=== PATIENT | male | born 1970 | race Caucasian/White ===

== ENCOUNTER → 2023-08-06 09:50 | Outpatient (REF) | payer OTHER, SELFPAY | LOC: RAD 09:50 | PROVIDERS: ATTENDING PHYSICIAN Internal Medicine Cardiovascular Disease; FAMILY PHYSICIAN Family Medicine | DX: I20.9 Angina pectoris, unspecified (principal); I25.10 Atherosclerotic heart disease of native coronary artery without angina pectoris; I10 Essential (primary) hypertension; E78.49 Other hyperlipidemia | CPT/HCPCS: 75574; Q9967 ==

== ENCOUNTER → 2023-09-28 14:08 | Outpatient (REF) | payer OTHER, SELFPAY | LOC: HWRAD 14:08 | PROVIDERS: ATTENDING PHYSICIAN Nurse Practitioner Acute Care; FAMILY PHYSICIAN Family Medicine | DX: I25.10 Atherosclerotic heart disease of native coronary artery without angina pectoris (principal) | CPT/HCPCS: 93880 ==

== ENCOUNTER 2024-03-31 10:13 | Emergency (ER) | payer OTHER, SELFPAY ==
[2024-03-31 10:27] VITALS: BP 148/91
--- NOTE | 2024-03-31 11:11 | ED.MUSCINJ ---
HPI-Injury
General
Chief Complaint: Musculo-Skeletal Complaint
Source: patient
Exam Limitations: none
Time Seen by Provider: 03/31/24 10:30
History of Present Illness-Injury
Initial Injury comments:
53-year-old male on aspirin and Plavix for history of coronary artery disease presents with crushing type injury to left thumb he sustained today at work. Last tetanus was less than 5 years ago. He notes minimal pain. He states the bone is
protruding through his wound.
Phy Exam
Physical Exam
Physical Exam:
General: Well-appearing male no acute respiratory distress
HEENT: Normocephalic atraumatic
Skin: Degloving injury distal portion left thumb. Distal phalanx is protruding through the wound. About midway along the distal phalanx. There is mild oozing about the wound
Able to initiate flexion of the IP joint of the left thumb
.
Injury Course
Orders/Labs/Results
Orders:
Orders
03/31/24 10:29
Thumb/Finger(s) 2 View Lt [CR Finger(s)/thumb Min 2 Vw Lt] Urgent
Comment:
Reason For Exam: smashed thumb in machine
Indicate Which Finger:: Thumb
03/31/24 11:20
CeFAZolin 2 GRAM [Ancef] 2 grams in 10 ml IV NOW
03/31/24 11:[address] Non Medication Order As Directed
Physician Order: please soak finger in saline and peroxide.
Above order entered?: Yes
MDM/Problems Addressed
Differential Diagnosis Includes:
Degloving injury left thumb involving the distal phalanx. X-rays were obtained which are negative for fracture. There is no sutures or closure to be able to be placed. Discussed with emergency room attending as well as orthopedics. Ancef ordered.
*Critical Care Note
Total Time (30-74mins, 75-104mins- exclusive of procedures): Not Applicable
Update Note
Update Note:
Discussed findings with orthopedics. The finger was soaked in saline and peroxide. Orthopedics will see the patient in the office today. I placed a dressing with Adaptic Telfa and a gauze wrap around the thumb. He was started on Keflex. He was
given 2 g of Ancef here.
ED Attending Note
-
Portions of this chart may have been created with voice recognition software.� Occasional wrong word or��sound alike� substitutions may have occurred due to the inherent limitations of voice recognition software.
Discharge Plan
Departure
Patient Disposition: Home (Routine Discharge)
Date of Disposition: 03/31/24
Time of Disposition: 12:12
Patient with high blood pressure during this ER visit?: No
Discharge Problem:
Degloving injury of thumb
Prescriptions:
New
cephalexin 500 mg capsule
500 mg PO Q6H 7 Days Qty: 28 0RF
No Action
multivitamin Tablet
1 tab PO DAILY
atorvastatin 40 mg Tablet
40 mg PO DAILY
rabeprazole [AcipHex] 20 mg Tablet,Delayed Release (Dr/Ec)
20 mg PO DAILY
aspirin 81 mg Tablet,Delayed Release (Dr/Ec)
81 mg PO DAILY
calcium carbonate [Tums] 200 mg calcium (500 mg) Tablet,Chewable
200 mg PO DAILY
metoprolol succinate 25 mg Tablet Extended Release 24 Hr
25 mg PO HS
loratadine 10 mg Tablet
10 mg PO DAILY
ezetimibe 10 mg Tablet
10 mg PO DAILY
omega 2-vqq-dnq-fish oil 1,200 (144-216) mg Capsule
1 cap PO DAILY
Referrals:
Esau Bland MD [Active] -
Zoey Faulkner MD [Family Provider] -
Activity Restrictions/Additional Instructions:
Please call the orthopedic office to confirm your appointment for this afternoon. Take antibiotics as directed
Interventions
Interventions:
*Risk Screen - Suicide Last Done: 03/31/24 10:27
*General Assessment Last Done: 03/31/24 11:45
*Neglect/Abuse Screening Last Done: 03/31/24 10:27
ED- Fall Risk Assessment Last Done: 03/31/24 11:45
ED-Musculoskeletal Assessment Last Done: 03/31/24 11:45
Discharge Date and Time
Print Language: NIGERIAN
[2024-03-31] MEDS: ANCEF 10 IV (11:42)
== END 2024-03-31 12:18 | disposition home or self-care (01) ==
LOC: EMR 10:13
PROVIDERS: EMERGENCY PHYSICIAN Emergency Medicine; FAMILY PHYSICIAN Family Medicine
DX: S67.02XA Crushing injury of left thumb, initial encounter (principal); W23.0XXA Caught, crushed, jammed, or pinched between moving objects, initial encounter; Y99.0 Civilian activity done for income or pay; I25.10 Atherosclerotic heart disease of native coronary artery without angina pectoris; Z79.02 Long term (current) use of antithrombotics/antiplatelets; Z79.82 Long term (current) use of aspirin
CPT/HCPCS: 96374; 99284; 73140